=== PATIENT | female | born 1955 | race Two or more races ===

== ENCOUNTER 2021-04-12 18:55 | Emergency (ER) | payer MEDICARE, BC ==
[~2021-04-12] VITALS: Ht 162.6 cm; Wt 68.0 kg
[2021-04-12] MEDS ORDERED: TDAP [DIPH/PERTUSSIS/TET] 0.5 ML VIAL IM ONE ×2 (19:00→19:31)
[2021-04-12] MEDS ORDERED: BACITRACIN ZINC OINT PACKET 1 EA PACKET TP ONE (19:00)
--- NOTE | 2021-04-12 19:10 | NUR ---
The patient bib family member for R pinky lac from thin glass, 12/09 ps, tdap not sure when. Will continue to monitor the patient.
[2021-04-12] MEDS ORDERED: LIDOCAINE 1% INJ 50 ML MDV IJ ONE (20:00)
[2021-04-12] MEDS ORDERED: LIDOCAINE 0.5% HCL 50 ML VIAL ONE (20:06)
[2021-04-12] MEDS ORDERED: LIDOCAINE HCL/MPF 1% 30 ML VIAL IJ ONE (20:09)
[2021-04-12] MEDS ORDERED: LIDOCAINE 1%-EPI 1:100,000 20 ML VIAL ONE (20:33)
--- NOTE | 2021-04-12 20:55 | NUR ---
AT BED SIDE FOR LACERATION CARE
[2021-04-12] MEDS ORDERED: CEPH500C2 PO (21:33)
[2021-04-12] MEDS ORDERED: IBUP-1955 PO (21:33)
[2021-04-12] MEDS ORDERED: HYDR-4303 PO (21:33)
[2021-04-12 21:39] VITALS: BP 126/76
--- NOTE | 2021-04-12 21:39 | NUR ---
Patient discharged to home in stable condition. Written and verbal after care instructions given. Patient verbalizes understanding of instruction.
== END 2021-04-12 21:39 | disposition home or self-care (01) ==
LOC: ER 19:03
DX: S61.216A Laceration without foreign body of right little finger without damage to nail, initial encounter (principal); F32.9 Major depressive disorder, single episode, unspecified; E03.9 Hypothyroidism, unspecified; Z88.0 Allergy status to penicillin; W25.XXXA Contact with sharp glass, initial encounter; Y93.89 Activity, other specified; Y92.89 Other specified places as the place of occurrence of the external cause; Y99.8 Other external cause status
CPT/HCPCS: 12001; 90471; 90715; 99283; A6403; J3490 ×3